=== PATIENT | male | born 1955 | race American Indian/Alaskan Native ===

== ENCOUNTER 2017-06-24 07:37 | Emergency (ER) | payer BC ==
[2017-06-24] MEDS ORDERED: TYLENOL PO ONE (09:46)
[2017-06-24 10:41] VITALS: BP 137/77
--- NOTE | 2017-06-24 18:26 | Emergency Department Report ---
Entered by SUJATA FRANKLIN, acting as scribe for ARVIN APTHAK NP. ED Upper Extremity Inj HPI - General Chief Complaint: Extremity Problem,Nontraumatic Stated Complaint: LEFT HAND PAIN Time Seen by Provider: 06/24/17 09:43 Source: patient Mode of arrival: Ambulatory Limitations: No Limitations - History of Present Illness Initial Comments: This is a 61 y/o male, nontoxic, well nourished in appearance, no acute signs of distress presents with left hand/wrist pain x 1 day. Associated symptoms include swelling but denies numbness, tingling, weakness, fever, chills, nausea and vomiting. Patient denies any injuries or trauma to the region. Pain is described as sharp and 8/10 on a severity scale. Patient states he was diagnosed with inflammatory arthritis and was treated with steroids. No alleviating or aggravating factors. NKDA. DUFF Complaint: Injury to:: left, hand Onset/Timin -: days(s) Other Extremity Injury: Hand: Left Other Injuries: none Place: home Improves With: none Worsens With: none Context: other (inflammatory arthritis ) Associated Symptoms: other (swelling, denies: fever, chills, tingling). denies : weakness, numbness, neck pain, suspects foreign body, nausea/vomiting, heard/ felt popping sensat - Related Data Previous Rx's Medication Instructions Recorded Last Taken Type Acetaminophen [Tylenol Arthritis] 650 mg PO Q6H #60 tablet.er 06/24/17 Unknown Rx predniSONE [Deltasone] 20 mg PO BID #10 tab 06/24/17 Unknown Rx Allergies Allergy/AdvReac Type Severity Reaction Status Date / Time No Known Allergies Allergy Unverified 06/24/17 07:45 ED Review of Systems Comment: All other systems reviewed and negative Constitutional: denies: chills, fever Eyes: denies: eye pain, eye discharge, vision change ENT: denies: ear pain, throat pain Respiratory: denies: cough, shortness of breath, wheezing Cardiovascular: denies: chest pain, palpitations Endocrine: no symptoms reported Gastrointestinal: denies: nausea, vomiting Genitourinary: denies: urgency, dysuria Musculoskeletal: other (left hand/wrist pain and swelling, denies: numbness, tingling, weakness) Skin: denies: rash, lesions Neurological: denies: headache, weakness, paresthesias Psychiatric: denies: anxiety, depression Hematological/Lymphatic: denies: easy bleeding, easy bruising ED Past Medical Hx - Past Medical History Hx of Cancer: Yes (Prostate) Additional medical history: Prostate removal, L eye surgery - Surgical History Past Surgical History?: Yes Additional Surgical History: Prostate removal, L eye surgery - Social History Smoking Status: Current Every Day Smoker Substance Use Type: None - Medications Home Medications: Home Medications Medication Instructions Recorded Confirmed Last Taken Type Acetaminophen [Tylenol Arthritis] 650 mg PO Q6H #60 tablet.er 06/24/17 Unknown Rx predniSONE [Deltasone] 20 mg PO BID #10 tab 06/24/17 Unknown Rx ED Physical Exam - General Limitations: No Limitations General appearance: alert, in no apparent distress - Head Head exam: Present: atraumatic, normocephalic, normal inspection - Eye Eye exam: Present: normal appearance, PERRL, EOMI. Absent: scleral icterus, conjunctival injection, nystagmus, periorbital swelling, periorbital tenderness Pupils: Present: normal accommodation - ENT ENT exam: Present: normal exam, normal orophraynx, mucous membranes moist, normal external ear exam - Neck Neck exam: Present: normal inspection, full ROM. Absent: tenderness, meningismus, lymphadenopathy, thyromegaly - Respiratory Respiratory exam: Present: normal lung sounds bilaterally. Absent: respiratory distress, wheezes, rales, rhonchi, stridor, chest wall tenderness, accessory muscle use, decreased breath sounds, prolonged expiratory - Cardiovascular Cardiovascular Exam: Present: regular rate, normal rhythm, normal heart sounds. Absent: bradycardia, tachycardia, irregular rhythm, systolic murmur, diastolic murmur, rubs, gallop - GI/Abdominal GI/Abdominal exam: Present: soft, normal bowel sounds. Absent: distended, tenderness, guarding, rebound, rigid, diminished bowel sounds - Rectal Rectal exam: Present: deferred - Extremities Exam Extremities exam: Present: normal inspection, full ROM, normal capillary refill. Absent: tenderness, pedal edema, joint swelling, calf tenderness - Expanded Upper Extremity Exam Left General: Present: normal inspection Shoulder Exam: Present: normal inspection, full ROM Upper Arm exam: Present: normal inspection, full ROM Elbow exam: Present: normal inspection, full ROM Forearm Wrist exam: Present: normal inspection, full ROM. Absent: tenderness, swelling, abrasion, laceration, ecchymosis, deformity, crepidus, dislocation, erythema, tenderness over anatomical snuff box, pain with axial thumb loading Hand Wrist exam: Present: full ROM, tenderness (mild), swelling. Absent: abrasion, laceration, ecchymosis, deformity, crepidus, dislocation, erythema, amputation, nail avulsion, subungual hematoma Neuro motor exam: Present: wrist extension intact, thumb opposition intact, thumb IP flexion intact, thumb adduction intact, fingers 2-5 abduction intact Neurosensory exam: Present: 2-point discrimination, radial nerve intact, ulnar nerve intact, median nerve intact Vascular: Present: normal capillary refill, radial pulse, brachial pulse, ulnar pulse. Absent: vascular compromise - Back Exam Back exam: Present: normal inspection, full ROM. Absent: tenderness, CVA tenderness (R), CVA tenderness (L), muscle spasm, paraspinal tenderness, vertebral tenderness, rash noted - Neurological Exam Neurological exam: Present: alert, oriented X3, CN II-XII intact, normal gait, reflexes normal - Psychiatric Psychiatric exam: Present: normal affect, normal mood - Skin Skin exam: Present: warm, dry, intact, normal color. Absent: rash ED Course Vital Signs 06/24/17 07:46 Temperature 98.2 F Pulse Rate 70 Respiratory 16 Rate Blood Pressure 163/78 O2 Sat by Pulse 100 Oximetry - Reevaluation(s) Reevaluation #1: 06/24/17 10:03 Patient is speaking in full sentences with no signs of distress noted. ED Medical Decision Making - Medical Decision Making This 61-year-old male that presents with chronic inflammatory arthritis to wrist /hand. Patient stated he had very similar episode and received a steroid shot as well as by mouth medication. Patient received Solu-Medrol 125 mg in ED IM as well as 40 mg by mouth prednisone at discharge. Patient also received Tylenol arthritis 650 at time of discharge. Patient was instructed to follow- up with a primary care doctor in 3-5 days or if symptoms worsen continue return to emergency room as soon as possible. At time time of discharge, the patient does not seem toxic or ill in appearance. No acute signs of distress noted. Patient agrees to discharge treatment plan of care. No further questions noted by the patient. ED Disposition Clinical Impression: Arthritis pain of hand Disposition: DC-01 TO HOME OR SELFCARE Is pt being admited?: No Does the pt Need Aspirin: No Condition: Stable Instructions: Acetaminophen (By mouth), Acute Gouty Arthritis (ED) Additional Instructions: follow-up with a primary care doctor in 3-5 days or if symptoms worsen continue return to emergency room as soon as possible. Prescriptions: Acetaminophen [Tylenol Arthritis] 650 mg PO Q6H #60 tablet.er predniSONE [Deltasone] 20 mg PO BID #10 tab Referrals: PRIMARY CAREMD [Primary Care Provider] - 3-5 Days OLAF ANDRADE MD [Staff Physician] - 3-5 Days [facility] [Outside] - 3-5 Days [facility] [Outside] - 3-5 Days Forms: Work/School Release Form(ED) This documentation as recorded by the NOEMI weston ELIZABETH,accurately reflects the service I personally performed and the decisions made by me,ARVIN PATHAK, LIG[place].
== END 2017-06-24 10:42 | disposition home or self-care (01) ==
LOC: ED 07:37
DX: M25.542 Pain in joints of left hand (principal); F17.200 Nicotine dependence, unspecified, uncomplicated; Z85.46 Personal history of malignant neoplasm of prostate; Z98.890 Other specified postprocedural states
CPT/HCPCS: 96372; 99282; J2930